=== PATIENT | female | born 1960 | race Caucasian/White ===

== ENCOUNTER 2017-03-14 20:37 | Emergency (ER) | payer OTHER ==
--- NOTE | 2017-03-14 21:20 | PDOC ---
History of Present Illness - General History Source: Patient Exam Limitations: No Limitations - History of Present Illness Initial Comments: 03/14/17 21:36 The patient is a 56 year old female, with a significant past medical history of vertigo, anxiety/depression, fibromyalgia, CAD, and hyperlipidemia, who presents to the emergency department complaining of an episode where she was unable to move her leg or arms after waking up from sleep earlier this evening. The patient reports falling asleep on the couch, but when she woke up she was unable to move. Patient reports her episode lasted 2 minutes, when her mom came over, tapped her arm and then she was able to move again. After her episode, patient reports palpitations and burning in her chest, which has since improved. She denies any associated chest pain, shortness of breath, diaphoresis , or lower extremity edema. She reports some lower abdominal pain, but denies any nausea, vomiting, diarrhea, or constipation. She reports increased urinary frequency(approximately 15 episodes per day), but denies any dysuria, hematuria , or urgency. She denies any fever, chills, headache, or dizziness. She denies any recent travel or sick contacts. Allergies: NKDA Past Surgical History: None reported Social History: Nonsmoker. No ETOH or recreational drug use. <Elisabeth Iraheta - Last Filed: 03/14/17 21:35> - General History Source: Patient <ChicooKko beltran - Last Filed: 03/14/17 23:36> - General Stated Complaint: WEAKNESS Time Seen by Provider: 03/14/17 21:05 Past History <Elisabeth Iraheta - Last Filed: 03/14/17 21:35> - Past Medical History Anemia: No Asthma: No Cancer: No Cardiac Disorders: Yes CVA: No COPD: No CHF: No Dementia: No Diabetes: Yes GI Disorders: (borderline DM) Disorders: No HTN: No Hypercholesterolemia: Yes Liver Disease: No Psychiatric Problems: Yes (DEPRESSION) Seizures: No Thyroid Disease: No - Surgical History Abdominal Surgery: No Appendectomy: No Cardiac Surgery: No Cholecystectomy: No Lung Surgery: No Neurologic Surgery: No Orthopedic Surgery: No - Suicide/Smoking/Psychosocial Hx Smoking History: Never smoked Have you smoked in the past 12 months: No Hx Alcohol Use: No Substance Use Type: None <Koko Ny - Last Filed: 03/14/17 23:36> - Past Medical History Allergies/Adverse Reactions: Allergies Allergy/AdvReac Type Severity Reaction Status Date / Time No Known Allergies Allergy Verified 03/14/17 21:43 Home Medications: Ambulatory Orders Albuterol Sulfate [Proair Hfa -] 1 - 2 inh PO QID PRN 10/30/14 Aspirin [ASA -] 81 mg PO DAILY 10/30/14 Atorvastatin Ca [Lipitor -] 10 mg PO DAILY 10/30/14 Diclofenac Sodium 100 gm TP BID PRN 10/30/14 Gabapentin 300 mg PO TID PRN 10/30/14 Ibuprofen/Famotidine [Duexis 800-26.6 mg Tablet] 1 each PO TID 10/30/14 Meclizine HCl [Antivert -] 25 mg PO BID 10/30/14 Pravastatin Sodium 20 mg PO DAILY 10/30/14 Zolpidem Tartrate 5 mg PO HS 10/30/14 Review of Systems - Review of Systems Able to Perform ROS?: Yes Comments:: 03/14/17 21:36 CONSTITUTIONAL: Absent: fever, no chills, no fatigue EYES: Absent: visual changes ENT: Absent: ear pain, no sore throat CARDIOVASCULAR: Absent: chest pain, no palpitations RESPIRATORY: Absent: cough, no SOB GI: Present: lower abdominal pain Absent: no nausea, no vomiting, no constipation, no diarrhea GENITOURINARY: Present: Frequency Absent: dysuria, no urgency, no hematuria MUSCULOSKELETAL: Present: Unable to move leg or arms after sleep. Absent: back pain, no arthralgia, no myalgia SKIN: Absent: rash NEURO: Absent: headache <Iraheta,Giomilsy - Last Filed: 03/14/17 21:35> *Physical Exam - Physical Exam Comments: 03/14/17 21:36 GENERAL: Well-appearing, well-nourished. No apparent distress. HEENT: Normocephalic, atraumatic. PERRL, EOM intact. CARDIOVASCULAR: Normal S1, S2. Regular rate and rhythm. PULMONARY: Clear to auscultation bilaterally. ABDOMEN: Soft, non-distended, non-tender. EXTREMITIES: Normal ROM in all four extremities. No gross deformities. SKIN: Warm, dry. No rash NEUROLOGICAL: No focal neurological deficits. <Iraheta,Giomilsy - Last Filed: 03/14/17 21:35> ED Treatment Course - LABORATORY CBC & Chemistry Diagram: 03/14/17 22:00 03/14/17 22:00 <Koko Ny - Last Filed: 03/14/17 23:36> Medical Decision Making - Medical Decision Making 03/14/17 23:35 Dr. Ny: The scribe's documentation has been prepared under my direction and personally reviewed by me in its entirery. I confirm that the note above accurately reflects all work, treatment, procedures, and medical decision making performed by me. <Koko Ny - Last Filed: 03/14/17 23:36> *DC/Admit/Observation/Transfer - Attestations Scribe Attestion: 03/14/17 21:36 Documentation prepared by Elisabeth Iraheta, acting as medical office receptionist assistant for Koko Ny DO. <Elisabeth Iraheta - Last Filed: 03/14/17 21:35> - Discharge Dispostion Admit: No <Koko Ny - Last Filed: 03/14/17 23:36> Diagnosis at time of Disposition: Vertigo, Chest pain - Discharge Dispostion Disposition: HOME Condition at time of disposition: Stable - Patient Instructions Printed Discharge Instructions: DI for Vertigo, DI for Chest Pain Additional Instructions: continue taking the Meclizine you have at home for the next few days, until you feel better.
[2017-03-14 21:54] VITALS: BP 129/72; PULSE 77; TEMP 98.3; BMI 35.7
[2017-03-14 22:07] LABS: BASOPHIL 0.5 % (0-2.0); EOSINOPHIL 2.4 % (0-4.5); MCH 27.4 pg (25.7-33.7); MCHC 32.8 g/dl (32.0-36.0); MEAN CELL VOLUME 83.6 fl (80-96); NEUTROPHILS 49.2 % (42.8-82.8); PLATELET COUNT 265 K/MM3 (134-434); RDW 13.6 % (11.6-15.6); WHITE BLOOD COUNT 4.9 K/mm3 (4.0-10.0)
[2017-03-14 22:51] LABS: ALBUMIN 3.6 g/dl (3.4-5.0); ANION GAP 7 (8-16); BILIRUBIN,TOTAL 0.1 mg/dL (0.2-1.0); CALCIUM 8.7 mg/dL (8.5-10.1); CO2 25 mmol/L (21-32); CREATININE 0.8 mg/dL (0.55-1.02); GLUCOSE,RANDOM 117 mg/dL (74-106); SGOT/AST 17 U/L (15-37); SGPT/ALT 32 U/L (12-78); TOT PROT 7.3 g/dl (6.4-8.2)
[2017-03-14 22:53] LABS: ALK PHOS 100 U/L (45-117); CPK 66 IU/L (26-192); TROPONIN I < 0.02 ng/ml (0.00-0.05)
[2017-03-14 23:29] LABS: URINE APPEARANCE CLEAR; URINE BILIRUBIN NEGATIVE (NEGATIVE); URINE BLOOD NEGATIVE (NEGATIVE); URINE COLOR STRAW; URINE GLUCOSE (UA) NEGATIVE (NEGATIVE); URINE KETONE NEGATIVE (NEGATIVE); URINE LEUK ESTERASE 1+ (NEGATIVE); URINE NITRITE NEGATIVE (NEGATIVE); URINE PROTEIN NEGATIVE (NEGATIVE); URINE UROBILINOGEN NEGATIVE mg/dL (0.2-1.0)
[2017-03-14 23:31] LABS: URINE MUCUS RARE; URINE RBC <1 /hpf (0-3); URINE WBC 7 /hpf (3-5)
[2017-03-14] MEDS ORDERED: MECLIZINE HCL 25 MG TABLET (FP) PO STA (23:34)
[2017-03-14] MEDS ORDERED: MECLIZINE HCL 25 MG TABLET (FP) ONE (23:37)
== END 2017-03-15 00:13 | disposition home or self-care (01) ==
LOC: JER 20:37
DX: R07.89 Other chest pain (principal); R42 Dizziness and giddiness; F41.8 Other specified anxiety disorders; E78.00 Pure hypercholesterolemia, unspecified
CPT/HCPCS: 36415; 80053; 81003; 81015; 83735; 84484; 85025; 99282-25

== ENCOUNTER 2018-05-06 15:05 | Emergency (ER) | payer OTHER ==
--- NOTE | 2018-05-06 15:42 | PDOC ---
Rapid Medical Evaluation Chief Complaint: Pain, Acute Time Seen by Provider: 05/06/18 15:39 Medical Evaluation: Allergies Allergy/AdvReac Type Severity Reaction Status Date / Time No Known Allergies Allergy Verified 03/14/17 21:43 05/06/18 15:40 I have performed a brief in person evaluation. The patient presents with a CC of : neck pain HPI: Pt is a 57 YO female who states she has neck pain radiating to right shoulder x 3 days. Pt denies injury or trauma. Denies fever. PE: Skin: Clear Lungs: Clear Heart: RRR Abd: no pain upon palpation MS: Moves all extremities without difficulty Neuro: Alert Psych: Appropriate affect I have ordered the following: nothing at this time. The patient will proceed to the [facility] for further evaluation. Discharge Disposition - Diagnosis Musculoskeletal pain - Referrals Referrals: Ac Mueller MD [Primary Care Provider] - - Patient Instructions - Post Discharge Activity
[2018-05-06 15:43] VITALS: BP 134/64; PULSE 70; TEMP 98.5; BMI 33.5
--- NOTE | 2018-05-06 16:14 | PDOC ---
History of Present Illness - General Chief Complaint: Pain, Acute Stated Complaint: SWELLING,RT SHOULDER/NECK Time Seen by Provider: 05/06/18 15:39 History Source: Patient Exam Limitations: Clinical Condition - History of Present Illness Initial Comments: 05/06/18 16:14 Patient with history of fibromyalgia, anxiety and prediabetes present with complaint of three-day history of pain to posterior right shoulder and lump to lateral side of right upper arm. Patient denies trauma or injuries to side. Patient reports pain is worse at night.patient report pain starting at right shoulder and radiaing down right lateral upper arm with swelling to lateral side of right upper arm for 3 days ago. Patient report she was doing physical therapy for her fibromyalgia. patient takes tylenol for her fibromyalgia pain. Denies any other symptoms Timing/Duration: other (3 days) Past History - Past Medical History Allergies/Adverse Reactions: Allergies Allergy/AdvReac Type Severity Reaction Status Date / Time No Known Allergies Allergy Verified 05/06/18 15:43 Home Medications: Ambulatory Orders Albuterol Sulfate [Proair Hfa -] 1 - 2 inh PO QID PRN 10/30/14 Aspirin [ASA -] 81 mg PO DAILY 10/30/14 Atorvastatin Ca [Lipitor -] 10 mg PO DAILY 10/30/14 Gabapentin 300 mg PO TID PRN 10/30/14 Ibuprofen/Famotidine [Duexis 800-26.6 mg Tablet] 1 each PO TID 10/30/14 Meclizine HCl [Antivert -] 25 mg PO BID 10/30/14 Pravastatin Sodium 20 mg PO DAILY 10/30/14 Zolpidem Tartrate 5 mg PO HS 10/30/14 Diclofenac Sodium 1 applic TP BID PRN #1 tube 05/06/18 Methocarbamol [Robaxin -] 500 mg PO TID PRN #21 tablet 05/06/18 Naproxen 500 mg PO BID PRN #20 tablet 05/06/18 Anemia: No Asthma: No Cancer: No Cardiac Disorders: Yes CVA: No COPD: No CHF: No Dementia: No Diabetes: Yes GI Disorders: (borderline DM) Disorders: No HTN: No Hypercholesterolemia: Yes Liver Disease: No Psychiatric Problems: Yes (DEPRESSION) Seizures: No Thyroid Disease: No - Surgical History Abdominal Surgery: No Appendectomy: No Cardiac Surgery: No Cholecystectomy: No Lung Surgery: No Neurologic Surgery: No Orthopedic Surgery: No - Immunization History Immunization Up to Date: No - Suicide/Smoking/Psychosocial Hx Smoking History: Never smoked Have you smoked in the past 12 months: No Hx Alcohol Use: No Drug/Substance Use Hx: No Substance Use Type: None Review of Systems - Review of Systems Able to Perform ROS?: Yes Is the patient limited French proficient: No Constitutional: No: Weakness HEENTM: No: Recent change in vision, Double Vision Respiratory: No: Symptoms reported Cardiac (ROS): No: Symptoms Reported ABD/GI: No: Symptoms Reported Musculoskeletal: Yes: Joint Pain (right shoulder), Joint Swelling (right deltoid ), Muscle Pain (right shoulder and upper arm). No: Muscle Weakness, Neck Pain, Joint Stiffness Integumentary: Yes: Lumps (right lateral deltoid). No: Bruising, Change in Color, Erythema, Flushing, Pallor, Pruritus, Rash, Sweating Neurological: No: Numbness, Paresthesia, Tingling All Other Systems: Reviewed and Negative *Physical Exam - Vital Signs Last Vital Signs Temp Pulse Resp BP Pulse Ox 98.5 F 70 18 134/64 99 05/06/18 15:39 05/06/18 15:39 05/06/18 15:39 05/06/18 15:39 05/06/18 15:39 - Physical Exam Comments: 05/06/18 16:21 GENERAL: Well developed, well nourished. Awake and alert. No acute distress. CARDIOVASCULAR: Regular rate and rhythm. No murmurs, rubs, or gallops. PULMONARY: No evidence of respiratory distress. Lungs clear to auscultation bilaterally. No wheezing, rales or rhonchi. ABDOMINAL: Soft. Non-tender. Non-distended. No rebound or guarding. No organomegaly. Normoactive bowel sounds MUSCULOSKELETAL : mild tenderness over right AC joint and posterior right shoulder. mild soft tissue swelling with tenderness to lateral deltoid muscle of right upper arm. No bony deformities EXTREMITIES: No cyanosis. No clubbing. No edema. No calf tenderness. SKIN: Warm and dry. Normal capillary refill. No rashes. No jaundice. NEUROLOGICAL: Alert, awake, appropriate. No motor deficits in the lower extremities. Gait is normal without ataxia. PSYCHIATRIC: Cooperative. Good eye contact. Appropriate mood and affect. General Appearance: Yes: Nourished, Appropriately Dressed. No: Apparent Distress ED Treatment Course - RADIOLOGY Radiology Studies Ordered: Category Date Time Status HUMERUS-RIGHT [RAD] Stat Radiology 05/06/18 16:03 Ordered SHOULDER W/TRANS-RIGHT [RAD] Stat Radiology 05/06/18 16:03 Ordered Medical Decision Making - Medical Decision Making 05/06/18 16:22 Patient with history of fibromyalgia, hyperlipidemia and anxiety disorder present with complaint of right shoulder and upper arm pain with swelling to lateral side of right upper arm without trauma or injury. Exam significant for mild tenderness to posterior right shoulder with mild soft tissue swelling to lateral deltoid muscle of right upper arm. X-ray of right shoulder and humerus ordered to rule out soft tissue swelling or lipoma. Treat based on imaging results 05/06/18 16:32 x-rays of right shoulder and humerus shows no acute pathology. patient might needs MRI for proper evaluation of shoulder pains and deltoid swelling. patient stable for discharge on naproxen and robaxin with orthopedics follow-up for possible MRI *DC/Admit/Observation/Transfer Diagnosis at time of Disposition: Musculoskeletal pain Right shoulder pain Qualifiers: Chronicity: acute Qualified Code(s): M25.511 - Pain in right shoulder - Discharge Dispostion Disposition: HOME Condition at time of disposition: Stable Decision to Admit order: No - Prescriptions Prescriptions: Diclofenac Sodium 1 applic TP BID PRN #1 tube PRN Reason: Pain Methocarbamol [Robaxin -] 500 mg PO TID PRN #21 tablet PRN Reason: shoulder pain Naproxen 500 mg PO BID PRN #20 tablet PRN Reason: shoulder pain - Referrals Referrals: Ac Mueller MD [Primary Care Provider] - Arnoldo Higgins MD [Staff Physician] - - Patient Instructions Printed Discharge Instructions: Shoulder Tendinopathy, Shoulder Sprain Additional Instructions: take medication as needed for pain. follow-up with referred orthopedics if symptoms persist for more than 4 days for possible MRI - Post Discharge Activity
== END 2018-05-06 16:44 | disposition home or self-care (01) ==
LOC: JERFT 15:05
DX: M54.2 Cervicalgia (principal); M25.511 Pain in right shoulder; M79.7 Fibromyalgia; E78.00 Pure hypercholesterolemia, unspecified; F41.9 Anxiety disorder, unspecified
CPT/HCPCS: 73030-TC-RT-FY; 73060-TC-RT-FY; 99281-25

== ENCOUNTER 2020-04-05 14:04 | Emergency (ER) | payer OTHER ==
--- NOTE | 2020-04-05 14:25 | PDOC ---
History of Present Illness - General History Source: Patient Exam Limitations: No Limitations - History of Present Illness Initial Comments: 04/05/20 14:23 59-year-old female past medical history prediabetes fibromyalgia anxiety depression neuropathy presenting to the ED complaining of several months of dry coughing fits with excessive talking and eating. However patient is able to tolerate p.o. food and fluids. Patient denies any throat pain or difficulty swallowing. Patient states that she avoided coming to the emergency room or seeing her doctor due to Covid but is now concerned. Patient also endorses weight gain. Pt otherwise denies: fevers, chills, syncope, lightheadedness, dizziness, headaches, neck pain, chest pain, shortness of breath, palpitations, back pain, abdominal pain, nausea, vomiting, diarrhea, constipation. <Jaron Griggs - Last Filed: 04/05/20 16:21> <Sheila Felix - Last Filed: 04/05/20 16:31> - General Chief Complaint: Cold Symptoms Stated Complaint: COUGH Time Seen by Provider: 04/05/20 14:10 Past History - Medical History Anemia: No Asthma: No Cancer: No Cardiac Disorders: Yes CVA: No COPD: No CHF: No Dementia: No Diabetes: Yes GI Disorders: (borderline DM) Disorders: No HTN: No Hypercholesterolemia: Yes Liver Disease: No Psychiatric Problems: Yes (DEPRESSION) Seizures: No Thyroid Disease: No - Surgical History Abdominal Surgery: No Appendectomy: No Cardiac Surgery: No Cholecystectomy: No Lung Surgery: No Neurologic Surgery: No Orthopedic Surgery: No - Immunization History Immunization Up to Date: No - Psycho-Social/Smoking History Smoking History: Unknown if ever smoked Have you smoked in the past 12 months: No - Substance Abuse Hx (Audit-C & DAST Scrn) In the last yr the pt used illegal drug/Rx for NonMed reason: No Score: Yes response is considered Positive: 0 Screen Result (Positive result requires Nsg. DAST-10): Negative <Jaron Griggs - Last Filed: 04/05/20 16:21> <Sheila Felix - Last Filed: 04/05/20 16:31> - Medical History Allergies/Adverse Reactions: Allergies Allergy/AdvReac Type Severity Reaction Status Date / Time No Known Allergies Allergy Verified 11/20/18 15:43 Home Medications: Ambulatory Orders Albuterol Sulfate [Proair Hfa -] 1 - 2 inh PO QID PRN 10/30/14 Aspirin [ASA -] 81 mg PO DAILY 10/30/14 Gabapentin 300 mg PO TID PRN 10/30/14 Ibuprofen/Famotidine [Duexis 800-26.6 mg Tablet] 1 each PO TID 10/30/14 Meclizine HCl [Antivert -] 25 mg PO BID 10/30/14 Methocarbamol [Robaxin -] 500 mg PO TID PRN #21 tablet 05/06/18 Acetaminophen W/ Codeine #3 [Tylenol # 3 -] 1 tab PO PRN 04/05/20 *Physical Exam - Vital Signs Last Vital Signs Temp Pulse Resp BP Pulse Ox 97.3 F L 67 18 123/78 100 04/05/20 14:09 04/05/20 14:09 04/05/20 14:09 04/05/20 14:04/05/20 14:09 - Physical Exam 04/05/20 14:24 Gen: AAOx 3, no acute distress, comfortable, no signs of respiratory distress HENT: atraumatic, normocephalic with no laceration or contusion. Nasal mucosa without erythema. Oropharynx without erythema or exudates. Mucous membranes moist. EYES: PERRL, EOM intact, conjunctiva pink NECK: supple; trachea midline; no JVD, no lymphadenopathy, or thyromegaly CV: RRR no murmurs, gallops, or rubs. CHEST: CTA b/l no wheezing, rales or rhonchi ABD: +BS/ND. no TTP; soft, no rebound, no guarding EXTREMITY: no cyanosis or erythema. 2+ dorsalis pedis, posterior tibial, and radial pulse. No pedal edema; no calf swelling or tenderness SKIN: no rash, warm and dry, no diaphoresis HEME: no purpura or ecchymosis NEURO: normal speech, CN II-XII intact, sensation intact, normal gait, no cerebellar deficits MS: 5/5 strength in all extremities, FROM intact in all extremities. <Jaron Griggs - Last Filed: 04/05/20 16:21> - Vital Signs Last Vital Signs Temp Pulse Resp BP Pulse Ox 97.3 F L 67 18 123/78 100 04/05/20 14:09 04/05/20 14:09 04/05/20 14:09 04/05/20 14:09 04/05/20 14:09 <Sheila Felix - Last Filed: 04/05/20 16:31> ED Treatment Course - LABORATORY CBC & Chemistry Diagram: 04/05/20 14:34 04/05/20 14:40 <Jaron Griggs - Last Filed: 04/05/20 16:21> - LABORATORY CBC & Chemistry Diagram: 04/05/20 14:34 04/05/20 14:40 - ADDITIONAL ORDERS Additional order review: Laboratory Results 04/05/20 14:40 Sodium 139 Potassium 4.5 Chloride 106 Carbon Dioxide 26 Anion Gap 8 BUN 17.7 Creatinine 0.7 Est GFR (CKD-EPI)AfAm 111.47 Est GFR (CKD-EPI)NonAf 96.18 Random Glucose 89 Calcium 9.0 Total Bilirubin 0.2 AST 20 ALT 22 Alkaline Phosphatase 76 Total Protein 7.2 Albumin 3.7 TSH 1.69 Resin T3 Uptake 31.4 04/05/20 14:34 RBC 4.72 MCV 86.4 MCHC 31.6 L RDW 13.3 MPV 7.4 L Neutrophils % 58.4 Lymphocytes % 32.6 Monocytes % 6.7 Eosinophils % 1.6 Basophils % 0.7 <Sheila Felix - Last Filed: 04/05/20 16:31> Medical Decision Making - Medical Decision Making 04/05/20 14:24 59-year-old female with coughing fits exacerbated by talking Vital signs stable Will obtain labs to assess for thyroid function Will reassess based on All lab work within normal limits Patient appears well is in no acute distress and is eating drinking ambulating in the ED freely Patient to follow-up with PCP Pt appears well and is safe and stable for discharge with strict return precautions including signs and symptoms requring immediate return to the ED Supportive care instructions explained and given to pt. Reasons to return emergently to ER explained and given. Importance of follow up with PMD and other specialists as indicated stressed to pt. Pt verbalized understanding of instructions. Pt to follow up with PMD in 2 days. <Jaron Griggs - Last Filed: 04/05/20 16:21> - Medical Decision Making The patient was seen and evaluated in conjunction with midlevel provider under my direct supervision, ancillary studies were reviewed. I agree with the plan as outlined withHERBERT Griggs. HPI, workup/dispo as outlined. VS reviewed, wnl. anticipate discharge, pcp followup, return precautions 04/05/20 16:31 <Sheila Felix - Last Filed: 04/05/20 16:31> Discharge - Discharge Information Problems reviewed: Yes <Jaron Griggs - Last Filed: 04/05/20 16:21> <Sheila Felix - Last Filed: 04/05/20 16:31> - Discharge Information Clinical Impression/Diagnosis: Throat dryness Condition: Stable Disposition: HOME - Follow up/Referral Referrals: Kwesi Espitia MD [Primary Care Provider] - - Patient Discharge Instructions Patient Printed Discharge Instructions: DI for Cough -- Adult Additional Instructions: PLEASE FOLLOW UP WITH YOUR REGULAR DOCTOR
--- OUTSIDE RECORDS SUMMARY | 2020-04-05 14:31 | XMS ---
:1960 Author Organization [facility] Support Name Relationship Address Phone UE Unavailable Unavailable Unavailable T Unavailable Unavailable STACEY ROBERTSON MOTHER [address] [place] [address] Stacey Robertson Unavailable [id number] [place] [address] Re-disclosure Warning The records that you are about to access may contain information from federally- assisted alcohol or drug abuse programs. If such information is present, then the following federally mandated warning applies: This information has been disclosed to you from records protected by federal confidentiality rules (42 CFR part 2). The federal rules prohibit you from making any further disclosure of this information unless further disclosure is expressly permitted by the written consent of the person to whom it pertains or as otherwise permitted by 42 CFR part 2. A general authorization for the release of medical or other information is NOT sufficient for this purpose. The Federal rules restrict any use of the information to criminally investigate or prosecute any alcohol or drug abuse patient.The records that you are about to access may contain highly sensitive health information, the redisclosure of which is protected by Article 27-F of the [facility] Public Health law. If you continue you may haveaccess to information: Regarding HIV / AIDS; Provided by facilities licensed or operated by the [facility] Office of Mental Health; or Provided by the [facility] Office for People With Developmental Disabilities. If such information is present, then the following [facility] mandated warning applies: This information has been disclosed to you from confidential records which are protected by state law. State law prohibits you from making any further disclosure of this information without the specific written consent of the person to whom it pertains, or as otherwise permitted by law. Any unauthorized further disclosure in violation of state law may result in a fine or fpc sentence or both. A general authorization for the release of medical or other information is NOT sufficient authorization for further disclosure. Encounters Encounter Providers Location Date Indications Data Source(s ) 07/04/2018 12:00:00 [facility] EST - 12/23/1993 Sunil gil 12:00:00 AM EDT Insurance Providers Payer name Policy type / Policy ID Covered Covered green party's Policy Plan Coverage type green party ID relationship to Davila Information davila HIP MEDICARE [id number] SP [id number] VIP [id number] 01 [id number] W [id number] 01 [id number] Superior [id number] S [id number] Vision MKD [place] [facility] [id number] S [id number] Options MKD Medicaid [id number] S [id number] Regular Clinic Visit Dental [id number] S [id number] Denta[employer] MKD [place] [id number] S [id number] MKD [facility] [id number] S [id number] [place] Medicaid 4013 [id number] S [id number] Regular Clinic Visit [employer] Medicaid [id number] S [id number] Managed Care [employer] Health Individual 0 Self 0 Plan of [facility] Health Individual 0 Self 0 Plan of [facility] Results ID Date Data Source [id number] 12/08/2019 12:00:00 AM EDT [place] Name Value Range Interpretation Code Description Data [facility] rce(s) Supporting Document(s ) 2019-nCoV [place] RNA XXX AYLA+probe- Imp This lab was ordered by [facility] and reported by [employer] Procedure
[2020-04-05 14:43] VITALS: BP 123/78; PULSE 67; TEMP 97.3; BMI 32.9
[2020-04-05 15:09] LABS: BASO % 0.7 % (0-2.0); EOS % 1.6 % (0-4.5); HEMATOCRIT 40.8 % (32.4-45.2); HEMOGLOBIN 12.9 GM/dL (10.7-15.3); LYMPH % 32.6 % (8-40); MCH 27.3 pg (25.7-33.7); MCHC 31.6 g/dl (32.0-36.0); MEAN CELL VOLUME 86.4 fl (80-96); MEAN PLT VOLUME 7.4 fl (7.5-11.1); MONO % 6.7 % (3.8-10.2); NEUT % 58.4 % (42.8-82.8); PLATELET COUNT 252 K/MM3 (134-434); RBC 4.72 M/mm3 (3.60-5.2); RDW 13.3 % (11.6-15.6); WHITE BLOOD COUNT 5.8 K/mm3 (4.0-10.0)
[2020-04-05 15:45] LABS: POTASSIUM 4.5 mmol/L (3.5-5.1)
[2020-04-05 15:48] LABS: ALBUMIN 3.7 g/dl (3.4-5.0); BLOOD UREA NITROGEN 17.7 mg/dL (7-18)
[2020-04-05 15:51] LABS: CREATININE 0.7 mg/dL (0.55-1.3)
[2020-04-05 15:52] LABS: BILIRUBIN,TOTAL 0.2 mg/dL (0.2-1); TOT PROT 7.2 g/dl (6.4-8.2)
== END 2020-04-05 16:30 | disposition home or self-care (01) ==
LOC: JER 14:04
DX: R68.2 Dry mouth, unspecified (principal)
CPT/HCPCS: 36415; 80053; 84439; 84443; 84479; 85025; 99284-25

== ENCOUNTER 2020-07-23 15:00 | Emergency (ER) | payer SELFPAY ==
[2020-07-23 15:13] VITALS: BP 126/77; PULSE 65; TEMP 99.1; BMI 32.2
[2020-07-23] MEDS ORDERED: KETOROLAC TROMETHAMINE 60 MG/2 ML VIAL IM ONE (16:36)
[2020-07-23] MEDS ORDERED: KETOROLAC TROMETHAMINE 60 MG/2 ML VIAL ONE (17:20)
== END 2020-07-23 17:00 | disposition home or self-care (01) ==
LOC: JER 15:00
PROC: 3E0233Z Introduction of Anti-inflammatory into Muscle, Percutaneous Approach (ICD-10-PCS; principal; 2020-07-23)
DX: B02.9 Zoster without complications (principal)
CPT/HCPCS: 99284-25

== ENCOUNTER 2022-05-14 13:41 | Emergency (ER) | payer OTHER ==
[2022-05-14 14:34] VITALS: BP 120/76; PULSE 69; RESP 19; TEMP 97.9; BMI 34.5
[2022-05-14] MEDS ORDERED: KETOROLAC TROMETHAMINE 30 MG/1 ML VIAL IM ONE (15:28)
[2022-05-14] MEDS ORDERED: KETOROLAC TROMETHAMINE 30 MG/1 ML VIAL ONE (15:33)
[2022-05-14 16:17] LABS: PH,URINE 5.5 (5.0-8.0); URINE APPEARANCE CLEAR; URINE BILIRUBIN NEGATIVE (NEGATIVE); URINE COLOR YELLOW; URINE GLUCOSE (UA) NEGATIVE (NEGATIVE); URINE KETONE NEGATIVE (NEGATIVE); URINE LEUK ESTERASE NEGATIVE (NEGATIVE); URINE NITRITE NEGATIVE (NEGATIVE); URINE PROTEIN NEGATIVE (NEGATIVE); URINE UROBILINOGEN 0.2 mg/dL (0.2-1.0)
[2022-05-14 18:32] LABS: BASO % 0.3 % (0-2.0); EOS % 1.2 % (0-4.5); HEMATOCRIT 41.2 % (32.4-45.2); LYMPH % 44.6 % (8-40); MCH 26.8 pg (25.7-33.7); MCHC 31.7 g/dl (32.0-36.0); MEAN CELL VOLUME 84.8 fl (80-96); MEAN PLT VOLUME 7.3 fl (7.5-11.1); MONO % 6.8 % (3.8-10.2); NEUT % 47.1 % (42.8-82.8); PLATELET COUNT 271 10^3/uL (134-434); RBC 4.86 M/mm3 (3.60-5.2); RDW 13.8 % (11.6-15.6); WHITE BLOOD COUNT 4.5 K/mm3 (4.0-10.0)
[2022-05-14 18:41] LABS: CALCIUM 9.4 mg/dL (8.5-10.1)
[2022-05-14 18:42] LABS: ALBUMIN 3.8 g/dl (3.4-5.0); BLOOD UREA NITROGEN 12.5 mg/dL (7-18)
[2022-05-14 18:45] LABS: CREATININE 0.8 mg/dL (0.55-1.3)
[2022-05-14 18:47] LABS: BILIRUBIN,TOTAL 0.4 mg/dL (0.2-1); TOT PROT 7.1 g/dl (6.4-8.2)
[2022-05-14] MEDS ORDERED: ACETAMINOPHEN 500 MG TABLET (FP) PO ONE (21:10)
[2022-05-14] MEDS ORDERED: LIDOCAINE 5% TOPICAL PATCH TP ONE (21:11)
[2022-05-14] MEDS ORDERED: ACETAMINOPHEN 500 MG TABLET (FP) ONE (21:31)
[2022-05-14] MEDS ORDERED: LIDOCAINE 5% TOPICAL PATCH ONE (21:31)
[2022-05-14] MEDS ORDERED: LIDOCAINE PATCH REMOVAL MC ONE (22:00)
== END 2022-05-14 22:55 | disposition home or self-care (01) ==
LOC: JER 13:41 → JERFT 13:41
PROC: 3E0233Z Introduction of Anti-inflammatory into Muscle, Percutaneous Approach (ICD-10-PCS; principal; 2022-05-14)
DX: R10.9 Unspecified abdominal pain (principal)
CPT/HCPCS: 36415; 74177-TC; 80053; 81003; 85025; 87086; 96372; 99285-25; Q9967

== ENCOUNTER → 2022-07-27 | Day surgery (SDC) | payer OTHER ==
[2022-07-25 14:53] VITALS: BMI 34.0
[~2022-07-27] MED LIST: BUPIVACAINE HCL/PF 0.75% 10 ML VIAL ONE; LIDOCAINE HCL/PF 1% SDV 5ML VIAL ONE
== END | disposition home or self-care (01) ==
LOC: JASU-SURG 04:06
PROVIDERS: ATTEND Pain Medicine Pain Medicine
DX: Z53.8 Procedure and treatment not carried out for other reasons (principal)

== ENCOUNTER 2022-07-31 04:12 | Day surgery (SDC) | payer OTHER ==
[2022-07-27 14:01] VITALS: BMI 34.0
[2022-07-31] MEDS ORDERED: BUPIVACAINE HCL/PF 0.75% 10 ML VIAL ONE (07:25)
[2022-07-31] MEDS ORDERED: LIDOCAINE HCL/PF 1% SDV 5ML VIAL ONE (07:25)
[2022-07-31] MEDS ORDERED: LIDOCAINE HCL/PF 2% SDV 5ML VIAL ONE (07:31)
[2022-07-31] MEDS ORDERED: LIDOCAINE HCL 1% PRESERVATIVE FREE - 30ML VIAL IJ ONE (10:55)
[2022-07-31] MEDS ORDERED: BUPIVACAINE HCL/PF 0.75% 10 ML VIAL NR ONE (10:56)
[2022-07-31 12:03] VITALS: BP 114/75; PULSE 65; RESP 16; TEMP 98.8
== END 2022-07-31 11:45 | disposition home or self-care (01) ==
LOC: JASU-SURG 04:12
PROVIDERS: ATTEND Pain Medicine Pain Medicine
PROC: 3E0T33Z Introduction of Anti-inflammatory into Peripheral Nerves and Plexi, Percutaneous Approach (ICD-10-PCS; 2022-07-31)
PROC: 3E0T3BZ Introduction of Anesthetic Agent into Peripheral Nerves and Plexi, Percutaneous Approach (ICD-10-PCS; principal; 2022-07-31 11:00)
DX: M47.816 Spondylosis without myelopathy or radiculopathy, lumbar region (principal)
CPT/HCPCS: 76000-TC-FY

== ENCOUNTER 2022-08-31 04:02 | Day surgery (SDC) | payer OTHER ==
[2022-08-28 18:00] VITALS: BMI 34.0
[2022-08-31] MEDS ORDERED: BUPIVACAINE HCL/PF 0.75% 10 ML VIAL PNB ONE ×2 (13:11→13:21)
[2022-08-31] MEDS ORDERED: LIDOCAINE HCL 1% PRESERVATIVE FREE - 30ML VIAL IJ ONE ×3 (13:11→13:21)
[2022-08-31 15:06] VITALS: BP 119/75; PULSE 64; RESP 20; TEMP 97.5
== END 2022-08-31 14:11 | disposition home or self-care (01) ==
LOC: JASU-SURG 04:02
PROVIDERS: ATTEND Pain Medicine Pain Medicine
PROC: 3E0T33Z Introduction of Anti-inflammatory into Peripheral Nerves and Plexi, Percutaneous Approach (ICD-10-PCS; 2022-08-31)
PROC: 3E0T3BZ Introduction of Anesthetic Agent into Peripheral Nerves and Plexi, Percutaneous Approach (ICD-10-PCS; principal; 2022-08-31 13:30)
DX: M47.816 Spondylosis without myelopathy or radiculopathy, lumbar region (principal)
CPT/HCPCS: 76000-TC-FY

== ENCOUNTER → 2022-09-04 | Day surgery (SDC) | payer OTHER ==
[2022-09-03 13:45] VITALS: BMI 35.6
== END | disposition home or self-care (01) ==
LOC: JASU-ENDO 05:25
PROVIDERS: ATTEND Internal Medicine Gastroenterology
DX: Z53.9 Procedure and treatment not carried out, unspecified reason (principal)

== ENCOUNTER 2022-10-02 04:38 | Day surgery (SDC) | payer OTHER ==
[2022-09-28 17:40] VITALS: BMI 34.4
[~2022-10-02 04:38] MED LIST changes: -BUPIVACAINE HCL/PF 0.75% 10 ML VIAL ONE; +BUPIVACAINE HCL/PF 0.75% 10 ML VIAL PNB ONE; +DEXAMETHASONE SOD PHOSPHATE 10 MG/1 ML VIAL IVPUSH ONE; +LIDOCAINE 1% P/F 10 MG/ML VIAL INF ONE; -LIDOCAINE HCL/PF 1% SDV 5ML VIAL ONE; +LIDOCAINE HCL/PF 2% SDV 5ML VIAL INF ONE
[2022-10-02] MEDS ORDERED: LIDOCAINE 1% P/F 10 MG/ML VIAL INF ONE ×2 (11:52)
[2022-10-02] MEDS ORDERED: LIDOCAINE HCL/PF 2% SDV 5ML VIAL INF ONE ×2 (11:52)
[2022-10-02] MEDS ORDERED: BUPIVACAINE HCL/PF 0.75% 10 ML VIAL PNB ONE ×2 (11:55)
[2022-10-02] MEDS ORDERED: DEXAMETHASONE SOD PHOSPHATE 10 MG/1 ML VIAL IVPUSH ONE (12:07)
[2022-10-02] MEDS ORDERED: ACETAMINOPHEN 500 MG TABLET (FP) PO PRN (13:04)
[2022-10-02 13:48] VITALS: BP 118/72; PULSE 60; RESP 17; TEMP 98
== END 2022-10-02 12:40 | disposition home or self-care (01) ==
LOC: JASU-SURG 04:38
PROVIDERS: ATTEND Pain Medicine Pain Medicine
PROC: 015B3ZZ Destruction of Lumbar Nerve, Percutaneous Approach (ICD-10-PCS; principal; 2022-10-02 11:15)
DX: M47.816 Spondylosis without myelopathy or radiculopathy, lumbar region (principal)
CPT/HCPCS: 76000-TC-FY; J1100

== ENCOUNTER 2022-10-04 04:08 | Day surgery (SDC) | payer OTHER ==
[2022-10-03 10:55] VITALS: BMI 33.5
[2022-10-04 09:26] VITALS: BP 111/65; PULSE 73; RESP 18; TEMP 98.3
== END 2022-10-04 10:45 | disposition home or self-care (01) ==
LOC: JASU-ENDO 04:08
PROVIDERS: ATTEND Internal Medicine Gastroenterology
DX: Z53.8 Procedure and treatment not carried out for other reasons (principal)
CPT/HCPCS: 82962

== ENCOUNTER 2022-10-04 10:53 | Observation (INO) | payer OTHER ==
[2022-10-04] MEDS ORDERED: SODIUM CHLORIDE 1,000 ML IV SCH (11:00)
[2022-10-04] MEDS ORDERED: SODIUM CHLORIDE 0.9% 1000 ML INFUS.BAG IV ONE (11:17)
[2022-10-04 11:47] LABS: BASO % 0.6 % (0-2.0); EOS % 0.4 % (0-4.5); HEMATOCRIT 41.6 % (32.4-45.2); LYMPH % 41.5 % (8-40); MCH 27.9 pg (25.7-33.7); MCHC 33.6 g/dl (32.0-36.0); MEAN CELL VOLUME 82.9 fl (80-96); MEAN PLT VOLUME 7.9 fl (7.5-11.1); MONO % 8.6 % (3.8-10.2); NEUT % 48.9 % (42.8-82.8); PLATELET COUNT 324 10^3/uL (134-434); RBC 5.02 M/mm3 (3.60-5.2); RDW 14.2 % (11.6-15.6)
[2022-10-04 11:54] LABS: PROTHROMBIN TIME (PATIENT) 11.6 SEC (9.7-13.0)
[2022-10-04 11:56] LABS: ACTIVATED PTT 28.4 SECONDS (25.2-36.5)
[2022-10-04 12:15] LABS: CHLORIDE 105 mmol/L (98-107); SODIUM 136 mmol/L (136-145)
[2022-10-04 12:17] LABS: CALCIUM 9.6 mg/dL (8.5-10.1); CO2 25 mmol/L (21-32)
[2022-10-04 12:19] LABS: BLOOD UREA NITROGEN 19.7 mg/dL (7-18); GLUCOSE,RANDOM 82 mg/dL (74-106)
[2022-10-04 12:20] LABS: SGOT/AST 95 U/L (15-37)
[2022-10-04 12:22] LABS: CHOLESTEROL 189 mg/dL (50-200); TOT PROT 8.2 g/dl (6.4-8.2)
[2022-10-04 12:23] LABS: BILIRUBIN,TOTAL 0.9 mg/dL (0.2-1); LDL CHOLESTEROL (ONLY SJRH) 86 mg/dL (5-100)
[2022-10-04 12:24] LABS: ALK PHOS 74 U/L (45-117)
[2022-10-04 12:25] LABS: HDL CHOLESTEROL 94 mg/dL (40-60)
[2022-10-04 12:52] LABS: ANION GAP 6 MMOL/L (8-16); SGPT/ALT 45 U/L (13-61)
[2022-10-04] MEDS ORDERED: ATORVASTATIN CA 80 MG TABLET (FP) PO ONE (13:35)
[2022-10-04] MEDS ORDERED: ASPIRIN 81 MG CHEWABLE TABLETS PO SCH (13:45)
[2022-10-04] MEDS ORDERED: ALPRAZolam 1 MG TABLET PO PRN (14:13)
[2022-10-04 15:02] LABS: PH,URINE 5.5 (5.0-8.0); URINE APPEARANCE CLEAR; URINE BILIRUBIN NEGATIVE (NEGATIVE); URINE COLOR YELLOW; URINE GLUCOSE (UA) NEGATIVE (NEGATIVE); URINE KETONE TRACE (NEGATIVE); URINE LEUK ESTERASE NEGATIVE (NEGATIVE); URINE NITRITE NEGATIVE (NEGATIVE); URINE PROTEIN NEGATIVE (NEGATIVE); URINE UROBILINOGEN 0.2 mg/dL (0.2-1.0)
[2022-10-04] MEDS ORDERED: ALPRAZolam 0.25 MG TABLET ONE (15:17)
[2022-10-04] MEDS ORDERED: ONDANSETRON 4 MG/2 ML VIAL ONE (15:26)
[2022-10-04] MEDS ORDERED: FAMOTIDINE 20 MG/50 ML IVPB 20 MG/50 ML MG IVPB ONE (15:26)
[2022-10-04] MEDS ORDERED: ACETAMINOPHEN INJECTION 100 ML IVPB ONE (15:26)
[2022-10-04 16:14] LABS: BLOOD UREA NITROGEN 18.3 mg/dL (7-18); CALCIUM 9.2 mg/dL (8.5-10.1)
[2022-10-04 16:17] LABS: CREATININE 0.7 mg/dL (0.55-1.3)
[2022-10-04 16:58] VITALS: BMI 34.0
[2022-10-04] MEDS ORDERED: traZODone HCL 50 MG TABLET (FP) PO SCH (22:00)
[2022-10-04] MEDS: MECLIZINE HCL 25 MG TABLET (FP) PO SCH (23:04)
[2022-10-04] MEDS ORDERED: MELATONIN 5 MG TABLETS PO SCH (23:30)
[2022-10-05 03:03] VITALS: RESP 18
[2022-10-05 07:19] LABS: BASO % 0.6 % (0-2.0); EOS % 1.5 % (0-4.5); HEMATOCRIT 35.2 % (32.4-45.2); HEMOGLOBIN 11.6 GM/dL (10.7-15.3); LYMPH % 53.4 % (8-40); MCH 27.2 pg (25.7-33.7); MCHC 33.1 g/dl (32.0-36.0); MEAN CELL VOLUME 82.4 fl (80-96); MEAN PLT VOLUME 7.3 fl (7.5-11.1); MONO % 7.9 % (3.8-10.2); NEUT % 36.6 % (42.8-82.8); PLATELET COUNT 224 10^3/uL (134-434); RBC 4.27 M/mm3 (3.60-5.2); WHITE BLOOD COUNT 4.8 K/mm3 (4.0-10.0)
[2022-10-05 07:37] LABS: BLOOD UREA NITROGEN 19.8 mg/dL (7-18); CALCIUM 8.6 mg/dL (8.5-10.1)
[2022-10-05 07:40] LABS: CREATININE 0.7 mg/dL (0.55-1.3); PHOSPHOROUS 4.5 mg/dL (2.5-4.9)
[2022-10-05 07:42] LABS: BILIRUBIN,TOTAL 0.6 mg/dL (0.2-1)
[2022-10-05 07:58] LABS: ALBUMIN 3.1 g/dl (3.4-5.0); TOT PROT 5.6 g/dl (6.4-8.2)
[2022-10-05 09:34] VITALS: BP 127/58; PULSE 61; TEMP 97.7
[2022-10-05] MEDS ORDERED: ASPIRIN 81 MG CHEWABLE TABLETS PO SCH (09:40)
[2022-10-05] MEDS: MECLIZINE HCL 25 MG TABLET (FP) PO SCH (09:59)
[2022-10-05] MEDS ORDERED: PANTOPRAZOLE 40 MG TABLET PO SCH (10:00)
[2022-10-05] MEDS ORDERED: ENOXAPARIN NA (PORCINE) 40 MG/0.4 ML DISP.SYRIN SQ SCH (10:00)
[2022-10-05] MEDS ORDERED: ATORVASTATIN CA 40 MG TABLET (FP) PO SCH (22:00)
== END 2022-10-05 13:45 | disposition home or self-care (01) ==
LOC: JER 10:53 → JERBED 13:29 → INTOOBSV 13:29 → UNDOADMOB 13:29 → JERBED 13:57 → J4W 18:36 → UNDODISOB 10-05 13:45
PROVIDERS: ADMIT Internal Medicine; ATTEND Internal Medicine
PROC: 3E023GC Introduction of Other Therapeutic Substance into Muscle, Percutaneous Approach (ICD-10-PCS; principal; 2022-10-04)
PROC: 3E0337Z Introduction of Electrolytic and Water Balance Substance into Peripheral Vein, Percutaneous Approach (ICD-10-PCS; 2022-10-04)
DX: E78.5 Hyperlipidemia, unspecified (principal); R73.03 Prediabetes; F41.8 Other specified anxiety disorders; G89.29 Other chronic pain; M54.9 Dorsalgia, unspecified; R42 Dizziness and giddiness; E66.8 Other obesity; Z68.35 Body mass index [BMI] 35.0-35.9, adult; Z79.01 Long term (current) use of anticoagulants; M79.7 Fibromyalgia; R29.810 Facial weakness
CPT/HCPCS: 0241U-QW; 36415; 70450-TC; 70551-TC; 80048; 80053; 80061; 81003; 82550; 82553; 83036; 83735; 84100; 84484; 85025; 85610; 85730; 93005; 93010; 96361; 96365; 96372; 97161-GP; 99285-25; G0378

== ENCOUNTER 2023-04-24 13:05 | Emergency (ER) | payer OTHER ==
[2023-04-24 13:13] VITALS: RESP 18; BMI 35.0
[2023-04-24] MEDS ORDERED: SODIUM CHLORIDE 1,000 ML IV STA (13:42)
[2023-04-24] MEDS ORDERED: ACETAMINOPHEN 1000 MG/100 ML BAG IVPB ONE (14:11)
[2023-04-24] MEDS ORDERED: ACETAMINOPHEN INJECTION 100 ML IVPB ONE (14:17)
[2023-04-24 14:29] LABS: BASO % 0.4 % (0-2.0); EOS % 1.6 % (0-4.5); HEMATOCRIT 40.9 % (32.4-45.2); HEMOGLOBIN 13.4 GM/dL (10.7-15.3); LYMPH % 19.9 % (8-40); MCH 27.3 pg (25.7-33.7); MCHC 32.8 g/dl (32.0-36.0); MEAN CELL VOLUME 83.1 fl (80-96); MEAN PLT VOLUME 7.4 fl (7.5-11.1); MONO % 9.5 % (3.8-10.2); NEUT % 68.6 % (42.8-82.8); PLATELET COUNT 239 10^3/uL (134-434); RBC 4.92 M/mm3 (3.60-5.2); WHITE BLOOD COUNT 6.9 K/mm3 (4.0-10.0)
[2023-04-24 14:36] LABS: INR 1.04 (0.83-1.09); PROTHROMBIN TIME (PATIENT) 12.1 SEC (9.7-13.0)
[2023-04-24 14:39] LABS: ACTIVATED PTT 28.9 SECONDS (25.2-36.5)
[2023-04-24 14:52] LABS: POTASSIUM 4.1 mmol/L (3.5-5.1)
[2023-04-24 14:54] LABS: ALBUMIN 3.6 g/dl (3.4-5.0); BLOOD UREA NITROGEN 14.3 mg/dL (7-18); CALCIUM 8.8 mg/dL (8.5-10.1)
[2023-04-24 14:59] LABS: BILIRUBIN,TOTAL 0.5 mg/dL (0.2-1); CREATININE 0.7 mg/dL (0.55-1.3); TOT PROT 7.1 g/dl (6.4-8.2)
[2023-04-24 17:50] VITALS: BP 120/68; PULSE 67; TEMP 98.5
== END 2023-04-24 18:29 | disposition home or self-care (01) ==
LOC: JER 13:05
PROC: 3E033NZ Introduction of Analgesics, Hypnotics, Sedatives into Peripheral Vein, Percutaneous Approach (ICD-10-PCS; principal; 2023-04-24)
PROC: 3E0337Z Introduction of Electrolytic and Water Balance Substance into Peripheral Vein, Percutaneous Approach (ICD-10-PCS; 2023-04-24)
DX: R06.02 Shortness of breath (principal); R51.9 Headache, unspecified; R00.2 Palpitations; M54.9 Dorsalgia, unspecified; R68.83 Chills (without fever); U07.1 COVID-19
CPT/HCPCS: 0241U-QW; 36415; 70450-TC; 71046-TC-FY; 71275-TC; 80053; 82550; 82553; 83735; 84443; 84484; 85025; 85610; 85730; 93005; 93010; 99285-25; Q9967

== ENCOUNTER 2023-06-06 04:32 | Day surgery (SDC) | payer OTHER ==
[2023-06-05 11:33] VITALS: BMI 36.6
[2023-06-06 11:22] VITALS: TEMP 98.4
[2023-06-06 11:27] VITALS: BP 119/87; PULSE 65; RESP 17
== END 2023-06-06 10:40 | disposition home or self-care (01) ==
LOC: JASU-ENDO 04:32
PROVIDERS: ATTEND Internal Medicine Gastroenterology
PROC: 0DB78ZX Excision of Stomach, Pylorus, Via Natural or Artificial Opening Endoscopic, Diagnostic (ICD-10-PCS; 2023-06-06)
PROC: 0DB68ZX Excision of Stomach, Via Natural or Artificial Opening Endoscopic, Diagnostic (ICD-10-PCS; 2023-06-06)
PROC: 0DB98ZX Excision of Duodenum, Via Natural or Artificial Opening Endoscopic, Diagnostic (ICD-10-PCS; principal; 2023-06-06 08:30)
DX: K29.50 Unspecified chronic gastritis without bleeding (principal); D13.2 Benign neoplasm of duodenum
CPT/HCPCS: 88305-TC; 88342-TC

== ENCOUNTER 2023-06-12 14:00 | Observation (INO) | payer OTHER ==
[2023-06-12 14:14] VITALS: BMI 36.6
[2023-06-12 17:21] LABS: BASO % 0.5 % (0-2.0); EOS % 2.2 % (0-4.5); HEMATOCRIT 41.4 % (32.4-45.2); HEMOGLOBIN 13.2 GM/dL (10.7-15.3); LYMPH % 43.9 % (8-40); MCHC 31.9 g/dl (32.0-36.0); MEAN CELL VOLUME 84.6 fl (80-96); MEAN PLT VOLUME 6.8 fl (7.5-11.1); MONO % 7.2 % (3.8-10.2); NEUT % 46.2 % (42.8-82.8); PLATELET COUNT 280 10^3/uL (134-434); RBC 4.89 M/mm3 (3.60-5.2); RDW 14.4 % (11.6-15.6); WHITE BLOOD COUNT 5.1 K/mm3 (4.0-10.0)
[2023-06-12 17:30] LABS: INR 1.03 (0.83-1.09)
[2023-06-12 17:32] LABS: ACTIVATED PTT 29.7 SECONDS (25.2-36.5)
[2023-06-12 17:42] LABS: POTASSIUM 4.4 mmol/L (3.5-5.1)
[2023-06-12 17:45] LABS: ALBUMIN 3.8 g/dl (3.4-5.0); BLOOD UREA NITROGEN 17.7 mg/dL (7-18)
[2023-06-12 17:46] LABS: CALCIUM 9.4 mg/dL (8.5-10.1); MAGNESIUM 2.1 mg/dL (1.8-2.4)
[2023-06-12 17:50] LABS: CREATININE 0.9 mg/dL (0.55-1.3)
[2023-06-12 17:51] LABS: BILIRUBIN,TOTAL 0.2 mg/dL (0.2-1); TOT PROT 7.2 g/dl (6.4-8.2)
[2023-06-13] MEDS ORDERED: AMITRIPTYLINE HCL 25 MG TABLET PO SCH (00:31)
[2023-06-13] MEDS ORDERED: MECLIZINE HCL 25 MG TABLET (FP) PO PRN (00:31)
[2023-06-13] MEDS ORDERED: PATIENT'S OWN MEDICATION (NON-FORMULARY) (Brinzolamide/Brimonidine Tart [Simbrinza 1%-0.2% OU SCH (06:00)
[2023-06-13 06:47] LABS: URINE APPEARANCE CLEAR; URINE BILIRUBIN NEGATIVE (NEGATIVE); URINE COLOR YELLOW; URINE GLUCOSE (UA) NEGATIVE (NEGATIVE); URINE KETONE NEGATIVE (NEGATIVE)
[2023-06-13 06:48] LABS: PH,URINE 8.5 (5.0-8.0); URINE LEUK ESTERASE NEGATIVE (NEGATIVE); URINE NITRITE POSITIVE (NEGATIVE); URINE PROTEIN NEGATIVE (NEGATIVE); URINE UROBILINOGEN 0.2 mg/dL (0.2-1.0)
[2023-06-13 07:29] VITALS: TEMP 97.6
[2023-06-13 09:26] LABS: BASO % 0.7 % (0-2.0); EOS % 2.5 % (0-4.5); HEMATOCRIT 40.3 % (32.4-45.2); HEMOGLOBIN 12.7 GM/dL (10.7-15.3); LYMPH % 50.4 % (8-40); MCH 26.8 pg (25.7-33.7); MCHC 31.5 g/dl (32.0-36.0); MEAN CELL VOLUME 85.3 fl (80-96); MONO % 7.9 % (3.8-10.2); NEUT % 38.5 % (42.8-82.8); PLATELET COUNT 268 10^3/uL (134-434); RBC 4.73 M/mm3 (3.60-5.2); RDW 13.7 % (11.6-15.6); WHITE BLOOD COUNT 4.9 K/mm3 (4.0-10.0)
[2023-06-13 09:50] LABS: ALBUMIN 3.6 g/dl (3.4-5.0); BLOOD UREA NITROGEN 17.6 mg/dL (7-18); CALCIUM 9.2 mg/dL (8.5-10.1); MAGNESIUM 2.1 mg/dL (1.8-2.4)
[2023-06-13 09:53] LABS: CREATININE 0.7 mg/dL (0.55-1.3)
[2023-06-13 09:55] LABS: BILIRUBIN,TOTAL 0.7 mg/dL (0.2-1); PHOSPHOROUS 3.8 mg/dL (2.5-4.9); TOT PROT 6.6 g/dl (6.4-8.2)
[2023-06-13] MEDS ORDERED: ENOXAPARIN NA (PORCINE) 40 MG/0.4 ML DISP.SYRIN SQ SCH (10:00)
[2023-06-13] MEDS ORDERED: FAMOTIDINE 40 MG TABLET PO SCH (10:00)
[2023-06-13] MEDS ORDERED: PANTOPRAZOLE 20 MG TABLET PO SCH (10:00)
[2023-06-13 10:45] LABS: CHOLESTEROL 161 mg/dL (50-200)
[2023-06-13 10:46] LABS: LDL CHOLESTEROL (ONLY SJRH) 70 mg/dL (5-100)
[2023-06-13 10:48] LABS: HDL CHOLESTEROL 76 mg/dL (40-60)
[2023-06-13 13:09] VITALS: BP 112/81; PULSE 83; RESP 16
[2023-06-13] MEDS ORDERED: BRIMONIDINE TARTRATE 0.2% OPHTHALMIC 5 ML BOTTLE OU SCH (14:00)
[2023-06-13] MEDS ORDERED: DORZOLAMIDE 2% HCL OPHTHALMIC SOLUTION 10 ML BOTTLE OU SCH (14:00)
[2023-06-13] MEDS ORDERED: LATANOPROST 0.005% OPHTH SOLN 2.5ML BOTTLE OU SCH (22:00)
[2023-06-13] MEDS ORDERED: ASPIRIN 81 MG CHEWABLE TABLETS PO SCH (22:00)
== END 2023-06-13 15:54 | disposition home or self-care (01) ==
LOC: JER 14:00 → JERBED 23:11 → INTOOBSV 23:11
PROVIDERS: ADMIT Internal Medicine
PROC: 3E023GC Introduction of Other Therapeutic Substance into Muscle, Percutaneous Approach (ICD-10-PCS; principal; 2023-06-12)
DX: I25.10 Atherosclerotic heart disease of native coronary artery without angina pectoris (principal); E78.5 Hyperlipidemia, unspecified; R73.03 Prediabetes; R42 Dizziness and giddiness; K21.9 Gastro-esophageal reflux disease without esophagitis; R00.2 Palpitations; M85.2 Hyperostosis of skull; F41.8 Other specified anxiety disorders; M79.7 Fibromyalgia; Z90.79 Acquired absence of other genital organ(s)
CPT/HCPCS: 0241U-QW; 36415; 70551-TC; 80053; 80061; 81003; 83735; 84100; 84484; 85025; 85610; 85730; 87086; 87186; 93005; 93010; 96372; 99285-25; G0378

== ENCOUNTER 2023-07-26 03:42 | Day surgery (SDC) | payer OTHER ==
[2023-07-24 10:55] VITALS: BMI 35.4
[2023-07-26 06:24] VITALS: RESP 18
[2023-07-26] MEDS ORDERED: LIDOCAINE HCL/PF 1% SDV 5ML VIAL ONE (07:13)
[2023-07-26] MEDS: LIDOCAINE 1% P/F 10 MG/ML VIAL INF ONE ×2 (08:43)
[2023-07-26] MEDS ORDERED: ACETAMINOPHEN 500 MG TABLET (FP) PO PRN (08:43)
[2023-07-26 09:30] VITALS: TEMP 97.8
[2023-07-26 10:51] VITALS: BP 123/76; PULSE 72
== END 2023-07-26 09:53 | disposition home or self-care (01) ==
LOC: JASU-SURG 03:42
PROVIDERS: ATTEND Pain Medicine Pain Medicine
PROC: 01HY3MZ Insertion of Neurostimulator Lead into Peripheral Nerve, Percutaneous Approach (ICD-10-PCS; principal; 2023-07-26 08:00)
DX: G89.4 Chronic pain syndrome (principal)
CPT/HCPCS: 64555; C1778; 76000-TC-FY

== ENCOUNTER 2023-10-09 13:41 | Emergency (ER) | payer OTHER ==
[2023-10-09 13:52] VITALS: TEMP 98.4; BMI 35.4
[2023-10-09 14:58] LABS: PH,URINE 6.5 (5.0-8.0); URINE APPEARANCE CLEAR; URINE BILIRUBIN NEGATIVE (NEGATIVE); URINE COLOR YELLOW; URINE GLUCOSE (UA) NEGATIVE (NEGATIVE); URINE KETONE NEGATIVE (NEGATIVE); URINE LEUK ESTERASE NEGATIVE (NEGATIVE); URINE NITRITE NEGATIVE (NEGATIVE); URINE PROTEIN NEGATIVE (NEGATIVE); URINE UROBILINOGEN 0.2 mg/dL (0.2-1.0)
[2023-10-09 15:09] LABS: BASO % 0.7 % (0-2.0); EOS % 1.1 % (0-4.5); HEMATOCRIT 39.5 % (32.4-45.2); HEMOGLOBIN 12.6 GM/dL (10.7-15.3); MCH 27.1 pg (25.7-33.7); MCHC 31.8 g/dl (32.0-36.0); MEAN CELL VOLUME 85.3 fl (80-96); MEAN PLT VOLUME 6.9 fl (7.5-11.1); MONO % 7.1 % (3.8-10.2); NEUT % 61.1 % (42.8-82.8); PLATELET COUNT 249 10^3/uL (134-434); RBC 4.64 M/mm3 (3.60-5.2); RDW 13.5 % (11.6-15.6); WHITE BLOOD COUNT 5.1 K/mm3 (4.0-10.0)
[2023-10-09] MEDS ORDERED: METOCLOPRAMIDE HCL INJECTION 10 MG/2 ML VIAL ONE (15:13)
[2023-10-09 15:15] LABS: INR 0.97 (0.83-1.09); PROTHROMBIN TIME (PATIENT) 11.3 SEC (9.7-13.0)
[2023-10-09 15:17] LABS: ACTIVATED PTT 30.8 SECONDS (25.2-36.5)
[2023-10-09] MEDS: SODIUM CHLORIDE 0.9% 500 ML INFUS.BAG IV ONE (15:21)
[2023-10-09] MEDS: METOCLOPRAMIDE HCL INJECTION 10 MG/2 ML VIAL IVPB ONE (15:22)
[2023-10-09 15:27] LABS: POTASSIUM 4.2 mmol/L (3.5-5.1)
[2023-10-09 15:29] LABS: ALBUMIN 3.7 g/dl (3.4-5.0); BLOOD UREA NITROGEN 18.1 mg/dL (7-18); CALCIUM 9.1 mg/dL (8.5-10.1)
[2023-10-09 15:32] LABS: CREATININE 0.8 mg/dL (0.55-1.3)
[2023-10-09 15:34] LABS: BILIRUBIN,TOTAL 0.2 mg/dL (0.2-1); TOT PROT 6.5 g/dl (6.4-8.2)
[2023-10-09 17:15] VITALS: BP 122/66; PULSE 77; RESP 14
== END 2023-10-09 17:14 | disposition home or self-care (01) ==
LOC: JER 13:41
PROC: 3E033GC Introduction of Other Therapeutic Substance into Peripheral Vein, Percutaneous Approach (ICD-10-PCS; principal; 2023-10-09)
DX: R00.2 Palpitations (principal); R42 Dizziness and giddiness; R11.0 Nausea
CPT/HCPCS: 36415; 70450-TC; 71046-TC-FY; 80053; 81003; 84443; 84484; 85025; 85610; 85730; 87086; 93005; 93010; 99285-25